=== PATIENT | female | born 1970 | race Caucasian/White ===

== ENCOUNTER → 2018-01-07 | Outpatient (CLI) | payer OTHER ==
--- NOTE | 2018-01-07 07:37 | US ---
EXAMINATION TYPE: US liver DATE OF EXAM: 01/07/2018 COMPARISON: NONE CLINICAL HISTORY: Abnormal liver Function R70.8; on medication for diabetes EXAM MEASUREMENTS: Liver Length: 18.0 cm, normal less than 15.5 cm. Gallbladder Wall: 0.1 cm CBD: 0.4 cm Right Kidney: 11.2 x 5.6 x 4.6 cm Pancreas: wnl Liver: fatty, increased size Gallbladder: wnl Evidence for sonographic Bond's sign: No CBD: wnl Right Kidney: wnl IMPRESSION: 1. Mild fatty infiltration of liver. 2. Hepatomegaly.
== END | disposition home or self-care (01) ==
LOC: RADUSWWP 06:55
PROVIDERS: ATTEND Family Medicine
DX: K76.0 Fatty (change of) liver, not elsewhere classified (principal); R16.0 Hepatomegaly, not elsewhere classified; R74.8 Abnormal levels of other serum enzymes
CPT/HCPCS: 76705

== ENCOUNTER 2020-06-09 14:14 | Emergency (ER) | payer OTHER ==
[2020-06-09] MEDS ORDERED: ASPIRIN 81 MG PO STA (14:23)
[2020-06-09] MEDS ORDERED: SODIUM CHLORIDE 0.9% 1,000 ML IV STA (14:23)
[2020-06-09] MEDS ORDERED: KETOROLAC 15 MG/ML 1 ML VIAL IVP STA (14:24)
[2020-06-09] MEDS ORDERED: ORPHENADRINE 30 MG/ML 2 ML VIAL IVP STA (14:24)
[2020-06-09 14:26] VITALS: TEMP 97.9
--- NOTE | 2020-06-09 14:28 | ED ---
Chest Pain HPI - General Stated Complaint: RU Time Seen by Provider: 06/09/20 14:15 Source: patient, RN notes reviewed - History of Present Illness Initial Comments: Is a 50-year-old female with no prior history of heart or lung disease who states she was working on a tractor try to get a mower deck off 20 minutes prior to arrival when she started having severe sharp right-sided chest pain. She states radiates straight to her back. He states it would get as severe as 10/10 severity is waxing and waning however it does seem he is somewhat worse with deep breathing or movement. Prior to that no fevers chills cough phlegm production or other abnormalities. MD Complaint: chest pain - Related Data Home Medications Medication Instructions Recorded Confirmed Glimepiride [Amaryl] 2 mg PO AC-BRKFST 05/18/20 06/09/20 metFORMIN HCL [Glucophage] 500 mg PO TID 05/18/20 06/09/20 sitaGLIPtin [Januvia] 100 mg PO DAILY 05/18/20 06/09/20 Albuterol Inhaler [Ventolin Hfa 2 puff INHALATION RT-QID PRN 06/09/20 06/09/20 Inhaler] Calcium Phosphate/Melatonin 4 tab PO ONCE PRN 06/09/20 06/09/20 [Paula-Garner Pm Gummy] Fenofibrate Nanocrystallized 145 mg PO DAILY 06/09/20 06/09/20 [Fenofibrate] Previous Rx's Medication Instructions Recorded Ibuprofen 800 mg PO Q6HR PRN #20 tablet 06/09/20 Orphenadrine [Norflex] 100 mg PO Q12H #7 tablet.er 06/09/20 Allergies Allergy/AdvReac Type Severity Reaction Status Date / Time fluticasone furoate AdvReac Chest Pain Verified 06/09/20 14:50 [From Breo Ellipta] vilanterol AdvReac Chest Pain Verified 06/09/20 14:50 [From Breo Ellipta] Review of Systems ROS Statement: Those systems with pertinent positive or pertinent negative responses have been documented in the HPI. ROS Other: All systems not noted in ROS Statement are negative. EKG Findings - EKG Results: EKG: interpreted by ERMNoel, sinus rhythm, normal axis, normal ST/T, no acute changes (Sinus rhythm a 92. Interval 144 QRS 78 QT since QTC 364/450 rightward axis no acute ST-T wave changes) Past Medical History Past Medical History: Diabetes Mellitus, Hyperlipidemia History of Any Multi-Drug Resistant Organisms: None Reported Additional Past Surgical History / Comment(s): Eye surgery 2013 Past Anesthesia/Blood Transfusion Reactions: Previous Problems w/ Anesthesia Additional Past Anesthesia/Blood Transfusion Reaction / Comment(s): pt states that her heart stops Past Psychological History: No Psychological Hx Reported Smoking Status: Former smoker Past Drug Use History: None Reported General Exam - General Exam Comments Initial Comments: This is a well-developed well-nourished awake alert oriented x 3 female General appearance: alert, anxious, in distress Head exam: Present: atraumatic, normocephalic, normal inspection Eye exam: Present: normal appearance, PERRL, EOMI. Absent: scleral icterus, conjunctival injection, periorbital swelling ENT exam: Present: normal exam, mucous membranes moist Neck exam: Present: normal inspection, full ROM, other (Reviewofanybruits). Absent: tenderness, meningismus, lymphadenopathy Respiratory exam: Present: normal lung sounds bilaterally, chest wall tenderness (Tenderness palpation over the right costal sternal costochondral margin with no step-off or crepitation. His does seem to reproduce the pain). Absent: respiratory distress, wheezes, rales, rhonchi, stridor Cardiovascular Exam: Present: regular rate, normal rhythm, normal heart sounds. Absent: systolic murmur, diastolic murmur, rubs, gallop, clicks GI/Abdominal exam: Present: soft, normal bowel sounds. Absent: distended, tenderness, guarding, rebound, rigid Extremities exam: Present: normal inspection, full ROM, normal capillary refill. Absent: tenderness, pedal edema, joint swelling, calf tenderness Back exam: Present: normal inspection Neurological exam: Present: alert, oriented X3, CN II-XII intact Psychiatric exam: Present: normal affect, anxious Skin exam: Present: warm, dry, intact, normal color. Absent: rash Course Vital Signs 06/09/20 06/09/20 14:16 14:32 Temperature 97.9 F Pulse Rate 101 H 88 Pulse Rate [ 90 Community Resource Consultant ] Respiratory 22 20 Rate Blood Pressure 156/82 157/73 O2 Sat by Pulse 98 99 Oximetry Procedures - Smoking Cessation Time Spent Discussing Smoking Cessation w/Patient (Minutes): 3 Patient Acknowledges Need for Cessation: Yes Chest Pain MDM - MDM Did review the imaging and report no acute findings patient pain is much improved the presentation is consistent with costochondritis and chest wall pain and did have a long discussion with patient wearing the findings including we did discuss smoking cessation and so the risks and benefits thereof. Patient will be discharged on appropriate medication. Disposition Clinical Impression: Costochondritis, Chest wall syndrome Disposition: HOME SELF-CARE Condition: Good Instructions (If sedation given, give patient instructions): Costochondritis (ED) Prescriptions: Ibuprofen 800 mg PO Q6HR PRN #20 tablet PRN Reason: Pain Orphenadrine [Norflex] 100 mg PO Q12H #7 tablet.er Is patient prescribed a controlled substance at d/c from ED?: No Referrals: Jim Huynh MD [Primary Care Provider] - 1-2 days
[2020-06-09 14:46] LABS: Basophils % (A) 0 %; Eosinophils # (A) 0.2 k/uL (0-0.7); Eosinophils % (A) 2 %; HCT 44.7 % (34.0-46.0); HGB 14.8 gm/dL (11.4-16.0); Lymphocytes # (A) 2.2 k/uL (1.0-4.8); Lymphocytes % (A) 23 %; MCH 30.3 pg (25.0-35.0); MCV 91.9 fL (80.0-100.0); Mean Platelet Volume 8.2; Monocytes # (A) 0.4 k/uL (0-1.0); Monocytes % (A) 4 %; Neutrophils # (A) 6.4 k/uL (1.3-7.7); Neutrophils % (A) 68 %; Platelet Count 254 k/uL (150-450); RBC 4.87 m/uL (3.80-5.40); RDW 13.3 % (11.5-15.5); WBC 9.4 k/uL (3.8-10.6)
--- NOTE | 2020-06-09 14:55 | XR ---
EXAMINATION TYPE: XR chest 2V DATE OF EXAM: 06/09/2020 COMPARISON: None HISTORY: 50-year-old female with chest pain TECHNIQUE: PA and lateral views FINDINGS: Heart normal size. Aorta and pulmonary vasculature within normal limits. Mild interstitial prominence . No consolidation or pleural effusion. IMPRESSION: Mild interstitial prominence may be chronic or could reflect bronchitis or asthma. Otherwise, no acut e process seen.
[2020-06-09 15:01] LABS: ALT 42 U/L (4-34); AST 29 U/L (14-36); African American GFR (CKD) >90 (>60 ml/min/1.73 sqM); Albumin 4.4 g/dL (3.5-5.0); Alkaline Phosphatase 87 U/L (38-126); Anion Gap 10 mmol/L; Blood Urea Nitrogen 17 mg/dL (7-17); Calcium 9.9 mg/dL (8.4-10.2); Carbon Dioxide 22 mmol/L (22-30); Chloride 106 mmol/L (98-107); Creatine Kinase 61 U/L (30-135); D-Dimer 0.46 mg/L FEU (<0.60); Glucose 276 mg/dL (74-99); INR 0.9 (<1.2); Magnesium 1.8 mg/dL (1.6-2.3); Non-African American GFR(CKD) 90 (>60 ml/min/1.73 sqM); Partial Thromboplastin Time 26.2 sec (22.0-30.0); Potassium 4.3 mmol/L (3.5-5.1); Prothrombin Time 9.6 sec (9.0-12.0); Sodium 138 mmol/L (137-145); Total Bilirubin 0.2 mg/dL (0.2-1.3)
[2020-06-09 16:04] VITALS: BP 150/77; PULSE 81; RESP 18
== END 2020-06-09 16:03 | disposition home or self-care (01) ==
LOC: EC 14:14
DX: M94.0 Chondrocostal junction syndrome [Tietze] (principal); E11.9 Type 2 diabetes mellitus without complications; Z79.84 Long term (current) use of oral hypoglycemic drugs; Z87.891 Personal history of nicotine dependence; Z88.8 Allergy status to other drugs, medicaments and biological substances
CPT/HCPCS: 36415; 85379; 83880; 80053; 82550; 83735; 84484; 85025; 85610; 85730; 71046; 99285; 96374; 96375; 96361 ×2; J2360; J1885; 99406

== ENCOUNTER → 2021-08-14 | Outpatient (CLI) | payer OTHER ==
--- NOTE | 2021-08-16 09:31 | MM ---
Reason for exam: screening (asymptomatic). Baseline mammogram. History: Patient is postmenopausal, has history of other cancer at age 29, and is nulliparous. Physical Findings: Nurse did not find any significant physical abnormalities on exam. MG Screening Mammo w CAD Bilateral CC and MLO view(s) were taken. XCCL view(s) were taken of the left breast. The breast tissue is heterogeneously dense. This may lower the sensitivity of mammography. Two areas of focal asymmetry anteriorly left breast and once located inferiorly right MLO. These may represent superimposition shadow but further evaluation is recommended. ASSESSMENT: Incomplete: need additional imaging evaluation, BI-RAD 0 RECOMMENDATION: Special view mammogram of both breasts. If lesion persists on supplemental views, image directed ultrasound is recommended. [facility] will attempt to contact patient to return for supplemental views and ultrasound if indicated.
== END | disposition home or self-care (01) ==
LOC: RADMAMWWP 14:07
PROVIDERS: ATTEND Obstetrics & Gynecology Obstetrics
DX: Z12.31 Encounter for screening mammogram for malignant neoplasm of breast (principal); Z78.0 Asymptomatic menopausal state
CPT/HCPCS: 77067

== ENCOUNTER → 2021-08-29 | Outpatient (CLI) | payer OTHER ==
--- NOTE | 2021-08-29 10:06 | MM ---
Reason for exam: additional evaluation requested from abnormal screening. Last mammogram was performed less than 1 month ago. History: Patient is postmenopausal, has history of other cancer at age 29, and is nulliparous. Family history of breast cancer in maternal grandmother. Physical Findings: Nurse did not find any significant physical abnormalities on exam. MG Work Up Mamm w CAD BILAT Bilateral spot compression MLO and LM view(s) were taken. Spot compression CC view(s) were taken of the left breast. Prior study comparison: August 14, 2021, bilateral MG screening mammo w CAD. The breast tissue is heterogeneously dense. This may lower the sensitivity of mammography. Right inferior asymmetric density persists on spot MLO but seems less defined on lateral. Left areas of asymmetric density show improvement on spot compression but other asymmetries amis likely due to focal dense tissue. These results were verbally communicated with the patient and result sheet given to the patient on 08/29/21. ASSESSMENT: Incomplete: need additional imaging evaluation, BI-RAD 0 RECOMMENDATION: Ultrasound of the right breast. (inferior half)
--- NOTE | 2021-08-29 10:07 | USB ---
Reason for exam: additional evaluation requested from abnormal screening. History: Patient is postmenopausal, has history of other cancer at age 29, and is nulliparous. Family history of breast cancer in maternal grandmother. US Breast Limited RT Right limited breast ultrasound including focal area of concern, retroareolar and axilla demonstrates mild duct ectasia. No solid or cystic lesion. Scanned 3-9 o'clock. These results were verbally communicated with the patient and result sheet given to the patient on 08/29/21. ASSESSMENT: Probably benign, BI-RAD 3 RECOMMENDATION: Follow-up diagnostic mammogram of both breasts in 6 months.
== END | disposition home or self-care (01) ==
LOC: RADMAMWWP 06:58
PROVIDERS: ATTEND Obstetrics & Gynecology Obstetrics
DX: N60.41 Mammary duct ectasia of right breast (principal); N64.89 Other specified disorders of breast; Z80.3 Family history of malignant neoplasm of breast; Z78.0 Asymptomatic menopausal state
CPT/HCPCS: 77066

== ENCOUNTER → 2022-02-27 | Outpatient (CLI) | payer OTHER ==
--- NOTE | 2022-02-27 16:36 | MM ---
Reason for Exam: Follow-up at short interval from prior study. Last screening mammogram was performed 6 month(s) ago. Patient History: Menarche at age 18. Patient has no children. Postmenopausal. Other cancer, age 29. Maternal grandmother had breast cancer. Risk Values: Eboni 5 year model risk: 1.0%. NCI Lifetime model risk: 9.1%. Film Views: Bilateral CC views were taken. Bilateral MLO views were taken. Prior Study Comparison: 08/14/2021 Bilateral Screening Mammogram, [facility]. 08/29/2021 Bilateral Diagnostic Mammogram, [facility]. 08/29/2021 Right Diagnostic Ultrasound, [facility]. Tissue Density: The breast tissue is heterogeneously dense. This may lower the sensitivity of mammography. Findings: Analyzed By CAD. No persistent suspicious distortion spiculated or lobular masses are evident. Benign spherical calcifications within the left breast. No significant interval change is evident. Overall Assessment: Benign, BI-RAD 2 Management: Screening Mammogram of both breasts in 6 months. A clinical breast exam by your physician is recommended on an annual basis and results should be correlated with mammographic findings. This exam should not preclude additional follow-up of suspicious palpable abnormalities. Results were given to the patient verbally at the time of exam. Electronically signed and approved by: Joe Davis D.O. Radiologis
== END | disposition home or self-care (01) ==
LOC: RADMAMWWP 08:40
PROVIDERS: ATTEND Family Medicine
DX: R92.1 Mammographic calcification found on diagnostic imaging of breast (principal); Z78.0 Asymptomatic menopausal state; Z80.3 Family history of malignant neoplasm of breast
CPT/HCPCS: 77062; 77066

== ENCOUNTER → 2022-04-10 | Outpatient (CLI) | payer OTHER ==
--- NOTE | 2022-04-10 17:30 | P.SLEEP ---
History of Present Illness DATE: 04/10/2022 CONSULTATION/NEW PATIENT EVALUATION HISTORY OF PRESENT ILLNESS/SLEEP-WAKE EVALUATION: 51year old female had been evaluated in the sleep center for possible obstructive sleep apnea hypopnea syndrome and significant excessive daytime sleepiness. SLEEP SCHEDULE: Usually sleep schedule on weekdays 10 PM to 6 AM, during days off 10 PM to 6 AM. FALLING ASLEEP: Patient has problems with the falling asleep, has TV set and bedroom DURING SLEEP: She usually sleeps on the side position away of the snoring and aw akenings from sleep with nocturia 1. Significant amount of movements during the sleep, restless leg symptoms No history of hypnogogical hallucinations, sleep paralysis, or cataplexy. DURING THE DAY/WAKE STATE: In the morning patient wake up tired, falling to sleep during the day. Almo sleepiness scale is 6, but patient falling to sleep very often while sitting and reading or watching TV. Usually she doesn't take naps. PAST MEDICAL HISTORY: Several years ago for symptoms of tiredness and sleepiness patient was on treatment with the Provigil and feels better with medication of the time. Diabetes mellitus, asthma, non-Hodgkin lymphoma 15 years ago. PAST SURGICAL HISTORY: Lymph node removed from neck area for non-Hodgkin lymphoma MEDICATIONS: Metformin, Januvia, albuterol. SOCIAL HISTORY: Positive for smoking for 32 pack years, quit 1 months ago, alcohol consumption none. FAMILY HISTORY: Hypertension, heart problems, hyperlipidemia REVIEW OF SYSTEMS: Snoring, tiredness and sleepiness. No fevers. No double vision. No recent chest pain. No shortness of breath. No abdominal pain. No bleeding episodes. No blood in urine. No seizure episodes. PHYSICAL EXAMINATION: GENERAL: A pleasant patient without any distress. VITAL SIGNS: BP 148/71 , HR 108 , RR 20 , weight 188 pounds, height 5 foot 8 inches, body mass index 28.4 . HEENT: PERRLA, EOMI. Evaluation of oropharynx showed tongue protrudes midline, low position of soft palate Mallampati for. NECK: Supple. No JVD. Thyroid is not palpable. 14 inches in circumference. LUNGS: Clear to percussion and to auscultation. Good air exchange. No wheezing or rhonchi. HEART: S1, S2 regular. No murmurs, gallops or rubs. ABDOMEN: Soft and nontender. Bowel sounds are present. No organomegaly appreciated. EXTREMITIES: No clubbing or cyanosis. FRUIT AND VEGETABLE INSPECTOR: Awake, alert, and oriented x3. Cranial nerves 2 to 7 intact. There is no fasciculation or atrophy noted. No focal deficits observed. ASSESSMENT: 1. Snoring. Extremely low position of soft palate. Episodes of sleepiness. Possible obstructive sleep apnea hypopnea syndrome. 2. Significant amount of movements during the sleep periodic limb movements. 3 restless legs symptoms. 4. History of non-Hodgkin lymphoma treated 15 years ago. 5 asthma. 6. Diabetes mellitus. PLAN: 1. Polysomnography for evaluation of patient's breathing during sleep and to check for possible periodic limb movements with following M SLT if PSG is negative for BASHIR. 2. CPAP/BiPAP titration if sleep study confirms obstructive sleep apnea- hypopnea syndrome. 3. Preferable position during sleep on the side. 4. No driving if patient feels any sleepiness. Patient is aware of civil and criminal liability for unsafe driving. 5. Sleep hygiene with regular sleep time for at least 7.5-8 hours. 6. Watching weight. Sincerely, Jordan Orozco MD, PhD, FAASM. Diplomat of [place] [employer], Sleep Medicine Board by [place] [employer] [place] [employer] Retail Sales Associate Seasonal of [facility] Past Medical History Past Medical History: Diabetes Mellitus, Hyperlipidemia History of Any Multi-Drug Resistant Organisms: None Reported Additional Past Surgical History / Comment(s): Eye surgery 2013 Past Anesthesia/Blood Transfusion Reactions: Previous Problems w/ Anesthesia Additional Past Anesthesia/Blood Transfusion Reaction / Comment(s): pt states that her heart stops Past Psychological History: No Psychological Hx Reported Smoking Status: Former smoker Past Drug Use History: None Reported Medications and Allergies Home Medications Medication Instructions Recorded Confirmed Type Glimepiride [Amaryl] 2 mg PO AC-BRKFST 05/18/20 06/09/20 History metFORMIN HCL [Glucophage] 500 mg PO TID 05/18/20 06/09/20 History sitaGLIPtin [Januvia] 100 mg PO DAILY 05/18/20 06/09/20 History Albuterol Inhaler [Ventolin Hfa 2 puff INHALATION RT-QID PRN 06/09/20 06/09/20 History Inhaler] Calcium Phosphate/Melatonin 4 tab PO ONCE PRN 06/09/20 06/09/20 History [Paula-[place] Pm Gummy] Fenofibrate Nanocrystallized 145 mg PO DAILY 06/09/20 06/09/20 History [Fenofibrate] Ibuprofen 800 mg PO Q6HR PRN #20 tablet 06/09/20 Rx Orphenadrine [Norflex] 100 mg PO Q12H #7 tablet.er 06/09/20 Rx Allergies Allergy/AdvReac Type Severity Reaction Status Date / Time fluticasone furoate AdvReac Chest Pain Verified 08/29/21 07:40 [From Breo Ellipta] vilanterol AdvReac Chest Pain Verified 08/29/21 07:40 [From Breo Ellipta] Sleep Note - Sleep Note Sleep Note: Temperature: Pulse Rate: Respiratory Rate: Blood Pressure: SpO2: Height: Weight: BMI: Neck Circumference:
== END ==
LOC: SLEEP 16:40
PROVIDERS: ATTEND Internal Medicine
DX: R40.0 Somnolence (principal); G47.61 Periodic limb movement disorder; R06.83 Snoring; J45.909 Unspecified asthma, uncomplicated; E11.9 Type 2 diabetes mellitus without complications; Z85.72 Personal history of non-Hodgkin lymphomas; Z79.84 Long term (current) use of oral hypoglycemic drugs; G25.81 Restless legs syndrome; Z79.51 Long term (current) use of inhaled steroids; Z87.891 Personal history of nicotine dependence; Z88.8 Allergy status to other drugs, medicaments and biological substances
CPT/HCPCS: 99211

== ENCOUNTER 2023-07-10 13:40 | Observation (INO) | payer OTHER ==
[2023-07-10] MEDS ORDERED: ASPIRIN 81 MG PO STA (14:44)
--- NOTE | 2023-07-10 15:14 | ED ---
Chest Pain HPI - General Chief Complaint: Chest Pain Stated Complaint: high BP pain in l arm Time Seen by Provider: 07/10/23 14:40 Source: patient, RN notes reviewed Mode of arrival: ambulatory Limitations: no limitations - History of Present Illness Initial Comments: 53-year-old female presents emergency Department with chief complaint of chest pain. Patient states pain is more frequent. She states she has sharp stabbing lightning type pain and radiates to her chest she states that she has now left arm pain, neck pain. She states that symptoms have been getting worse. Patient states that she has discussed with her PCP. Patient has a history of hyperlipidemia and diabetes. She states pain has been more frequent, worsening symptoms. - Related Data Home Medications Medication Instructions Recorded Confirmed Glimepiride [Amaryl] 2 mg PO AC-BRKFST 05/18/20 07/10/23 metFORMIN HCL [Glucophage] 500 mg PO BID 05/18/20 07/10/23 sitaGLIPtin [Januvia] 100 mg PO DAILY 05/18/20 07/10/23 Albuterol Inhaler [Ventolin Hfa 2 puff INHALATION RT-QID PRN 06/09/20 07/10/23 Inhaler] Fenofibrate Nanocrystallized 145 mg PO DAILY 06/09/20 07/10/23 [Fenofibrate] ondansetron HCL [Zofran] 8 mg PO TID PRN 07/10/23 07/10/23 Allergies Allergy/AdvReac Type Severity Reaction Status Date / Time fluticasone furoate AdvReac Chest Pain Verified 07/10/23 16:21 [From Breo Ellipta] vilanterol AdvReac Chest Pain Verified 07/10/23 16:21 [From Breo Ellipta] Review of Systems ROS Statement: Those systems with pertinent positive or pertinent negative responses have been documented in the HPI. ROS Other: All systems not noted in ROS Statement are negative. EKG Findings - EKG Comments: EKG Findings:: EKG performed at 14:15 sinus rhythm with a rate of 92 FL 128 QRS 79 QT/QTC 357/407 inverted T wave, Q-wave in lead 3 - EKG Results: EKG: interpreted by SADIED Past Medical History Past Medical History: Diabetes Mellitus, Hyperlipidemia History of Any Multi-Drug Resistant Organisms: None Reported Additional Past Surgical History / Comment(s): Eye surgery 2014 Past Anesthesia/Blood Transfusion Reactions: Previous Problems w/ Anesthesia Additional Past Anesthesia/Blood Transfusion Reaction / Comment(s): pt states that her heart stops Past Psychological History: No Psychological Hx Reported Smoking Status: Former smoker Past Alcohol Use History: None Reported Past Drug Use History: None Reported General Exam Limitations: no limitations General appearance: alert, in no apparent distress Head exam: Present: atraumatic, normocephalic, normal inspection Eye exam: Present: normal appearance, PERRL, EOMI. Absent: scleral icterus, conjunctival injection, periorbital swelling ENT exam: Present: normal exam, normal oropharynx, mucous membranes moist Neck exam: Present: normal inspection. Absent: tenderness, meningismus, lymphadenopathy Respiratory exam: Present: normal lung sounds bilaterally. Absent: respiratory distress, wheezes, rales, rhonchi, stridor Cardiovascular Exam: Present: regular rate, normal rhythm, normal heart sounds. Absent: systolic murmur, diastolic murmur, rubs, gallop, clicks GI/Abdominal exam: Present: soft, normal bowel sounds. Absent: distended, tenderness, guarding, rebound, rigid Extremities exam: Present: normal inspection, full ROM. Absent: tenderness Back exam: Present: full ROM. Absent: tenderness Course Vital Signs 07/10/23 07/10/23 07/10/23 13:53 15:01 16:00 Temperature 97.0 F L Pulse Rate 100 95 92 Respiratory 18 20 20 Rate Blood Pressure 132/69 117/60 127/61 O2 Sat by Pulse 96 95 98 Oximetry Chest Pain MDM - MDM Was pt. sent in by a medical professional or institution (, PA, TALENT ACQUISITION ADMINISTRATOR, urgent care, hospital, or fci...) When possible be specific @ -[No] Did you speak to anyone other than the patient for history (EMS, parent, family, police, friend...)? What history was obtained from this source @ -[No] Did you review nursing and triage notes (agree or disagree)? Why? @ -[I reviewed and agree with nursing and triage notes] Were old charts reviewed (outside hosp., previous admission, EMS record, old EKG, old radiological studies, urgent care reports/EKG's, fci records)? Report findings @ -[No old charts were reviewed] Differential Diagnosis (chest pain, altered mental status, abdominal pain women, abdominal pain men, vaginal bleeding, weakness, fever, dyspnea, syncope, headache, dizziness, GI bleed, back pain, seizure, CVA, palpatations, mental health, musculoskeletal)? @ -[nDifferential Chest Pain: Stable Angina, Unstable Angina, STEMI, NSTEMI Aortic Dissection, Pneumothorax, Musculoskeletal, Esophageal Spasm GERD, Cholecystitis, Pancreatitis, Zoster, this is not meant to be an all-inclusive list. ble] EKG interpreted by me (3pts min.). @ -[As above] X-rays interpreted by me (1pt min.). @ -[Chest x-ray shows no acute carpal or process.] CT interpreted by me (1pt min.). @ -[None done] U/S interpreted by me (1pt. min.). @ -[None done] What testing was considered but not performed or refused? (CT, X-rays, U/S, labs)? Why? @ -[None] What meds were considered but not given or refused? Why? @ -[None] Did you discuss the management of the patient with other professionals (sosa garcia i.e. , PA, TALENT ACQUISITION ADMINISTRATOR, lab, RT, psych nurse, mental health social worker, civil engineering project designer, teacher, public service officer, caser up)? Give summary @ -[PCP for admission for cardiac rule out] Was smoking cessation discussed for >3mins.? @ -[No] Was critical care preformed (if so, how long)? @ -[No] Were there social determinants of health that impacted care today? How? (Homelessness, low income, unemployed, alcoholism, drug addiction, transportation, low edu. Level, literacy, decrease access to med. care, shelter, rehab)? @ -[No] Was there de-escalation of care discussed even if they declined (Discuss DNR or withdrawal of care, Hospice)? DNR status @ -[No] What co-morbidities impacted this encounter? (DM, HTN, Smoking, COPD, CAD, Cancer, CVA, ARF, Chemo, Hep., AIDS, mental health diagnosis, sleep apnea, morbid obesity)? @ -[Diabetes hyperlipidemia] Was patient admitted / discharged? Hospital course, mention meds given and route, prescriptions, significant lab abnormalities, going to OR and other pertinent info. @ -[Admitted patient's chest pain worsening progressive symptoms. Patient symptoms consistent with unstable angina. Patient initially troponin is negative negative d-dimer. Patient has hyperlipidemia, diabetes and history of Hodgkin's lymphoma. Patient will be admitted for cardiology evaluation] Undiagnosed new problem with uncertain prognosis? @ -[No] Drug Therapy requiring intensive monitoring for toxicity (Heparin, Nitro, Insulin, Cardizem)? @ -[No] Were any procedures done? @ -[No] Diagnosis/symptom? @ -[Chest pain] Acute, or Chronic, or Acute on Chronic? @ -[Acute] Uncomplicated (without systemic symptoms) or Complicated (systemic symptoms)? @ -[complicated Side effects of treatment? @ -[No] Exacerbation, Progression, or Severe Exacerbation? @ -[No] Poses a threat to life or bodily function? How? (Chest pain, [place], DC, pneumonia, PE, COPD, DKA, ARF, appy, cholecystitis, CVA, Diverticulitis, Homicidal, Suicidal, threat to staff... and all critical care pts) @ -[yes has ACS Disposition Clinical Impression: Chest pain Disposition: ADMITTED IP TO THIS HOSP Condition: Fair Referrals: Joanna Davey PAC [REFERRING] - 1-2 days Time of Disposition: 16:50
[2023-07-10 15:21] LABS: Basophils % (A) 1 %; Eosinophils # (A) 0.3 k/uL (0-0.7); Eosinophils % (A) 4 %; HCT 41.2 % (34.0-46.0); HGB 14.4 gm/dL (11.4-16.0); Lymphocytes # (A) 1.7 k/uL (1.0-4.8); Lymphocytes % (A) 24 %; MCH 31.7 pg (25.0-35.0); MCHC 34.9 g/dL (31.0-37.0); MCV 91.1 fL (80.0-100.0); Mean Platelet Volume 8.1; Monocytes # (A) 0.4 k/uL (0-1.0); Monocytes % (A) 6 %; Neutrophils # (A) 4.6 k/uL (1.3-7.7); Neutrophils % (A) 64 %; Platelet Count 186 k/uL (150-450); RBC 4.52 m/uL (3.80-5.40); WBC 7.1 k/uL (3.8-10.6)
--- NOTE | 2023-07-10 15:31 | XR ---
EXAMINATION TYPE: XR chest 2V DATE OF EXAM: 07/10/2023 COMPARISON: 06/09/2020 HISTORY: 53-year-old female with chest pain TECHNIQUE: PA and lateral views FINDINGS: The cardiomediastinal silhouette, aorta, and pulmonary vasculature are within normal limits. Lungs an d pleural spaces are clear. IMPRESSION: No acute cardiopulmonary process.
[2023-07-10 15:39] LABS: ALT 76 U/L (4-34); AST 56 U/L (14-36); African American GFR (CKD) >90 (>60 ml/min/1.73 sqM); Albumin 4.1 g/dL (3.5-5.0); Alkaline Phosphatase 104 U/L (38-126); Anion Gap 11 mmol/L; Blood Urea Nitrogen 16 mg/dL (7-17); Calcium 9.3 mg/dL (8.4-10.2); Carbon Dioxide 23 mmol/L (22-30); Chloride 103 mmol/L (98-107); Glucose 280 mg/dL (74-99); Magnesium 1.8 mg/dL (1.6-2.3); Non-African American GFR(CKD) >90 (>60 ml/min/1.73 sqM); Potassium 4.3 mmol/L (3.5-5.1); Sodium 137 mmol/L (137-145); Total Bilirubin 0.3 mg/dL (0.2-1.3)
[2023-07-10 15:40] LABS: INR 0.9 (<1.2); Partial Thromboplastin Time 23.8 sec (22.0-30.0); Prothrombin Time 9.7 sec (9.0-12.0)
[2023-07-10 15:47] LABS: NT-Pro-B-Type Natriuretic Pept 31 pg/mL
[2023-07-10] MEDS ORDERED: NITROGLYCERIN SL TABS 0.4 MG TAB SUBLINGUAL PRN (16:48)
[2023-07-11] MEDS ORDERED: AMINOPHYLLINE 500 MG/20 ML VIAL IV PRN (07:51)
[2023-07-11] MEDS ORDERED: CAFFEINE CITRATE 60 MG/3 ML VIAL IV PRN (07:51)
[2023-07-11] MEDS ORDERED: REGADENOSON 0.4 MG/5 ML SYRINGE IV PRN (07:51)
[2023-07-11] MEDS ORDERED: DEXTROSE 50% SYRINGE 50 ML IVP PRN ×2 (08:09)
[2023-07-11 08:15] VITALS: BP 124/74; PULSE 80; RESP 16; TEMP 97.8
[2023-07-11] MEDS ORDERED: ASPIRIN 81 MG PO SCH (09:00)
[2023-07-11] MEDS ORDERED: FENOFIBRATE 160 MG TAB PO SCH (09:00)
[2023-07-11] MEDS ORDERED: ASPIRIN 325 MG TAB PO SCH (09:00)
--- NOTE | 2023-07-11 09:01 | P.CRDCN ---
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 Patient had one appointment in the office in [address] Dickson at that time recommended stress testing which did not occur. Patient does not recall having the appointment. Patient had a high blood pressure reading at home with a systolic of 180 and contacted her practitioner was sent into the emergency center for further evaluation. Patient does relate that she has had pains in the mid sternal area to go through to her back also up into her right neck and the head area. Feels like a lightning pulled and his. States she has had these pains for more than a year but they are occurring more frequently now. She states she has a high stress job and it seems to be worse with stress and at the time she feels very tense inside and can't get out deep breath. It usually goes away when she lays down in bed. She also has racing and pounding in her chest. Last week she started having left arm numbness and pain that seemed to start at the base of the neck on the lateral side and go to the elbow. Patient quit smoking 2 months ago. She denies any cough or sputum production. Although blood pressure readings were high at home, all her pressure readings here have been normal. EKG sinus rhythm with no acute ST changes Chest x-ray: No acute process Troponin negative 3, blood sugar 280, AST 56, ALT 76, magnesium 1.8. Home cardiac medications: None Review Of Systems: At the time of my evaluation: Constitutional: No fever, no chills. No weakness, fatigue or lethargy. EENT: No headache. No dizziness. Lungs: No shortness of breath, cough, no sputum production. No wheezing. Cardiovascular: No chest pain, no lower extremity edema. No palpitations. No paroxysmal nocturnal dyspnea. No orthopnea. No lightheadedness or dizziness. No syncopal episodes. Abdominal: No abdominal pain. No nausea, vomiting. No diarrhea. Musculoskeletal: No muscle weakness, no frequent falls. Integumentary: No wounds. No rash. No unusual bruising. Neurologic: No aphasia. No facial droop. No change in mentation. Physical examination: Gen: This is a 53-year-old female. She is resting in bed appears to be comfortable and in no acute distress. VS: reviewed HEENT: Head is atraumatic, normocephalic. Pupils equal, round. Sclerae is anicteric. NECK: Supple. No JVD. . LUNGS: Clear to auscultation. No wheezes or rhonchi. No intercostal retractions. HEART: Regular rate and rhythm. No murmur. No tenderness to chest wall ABDOMEN: Soft No tenderness. EXTREMITIES: No pedal edema. No calf tenderness. NEUROLOGICAL: Patient is awake, alert and oriented x3. Assessment: Atypical chest pain, acute coronary syndrome ruled out Diabetes mellitus type 2 Hypertension Hyperlipidemia Plan: Patient will be scheduled for Lexiscan stress test today Obtain 2-D echocardiogram and Doppler study to assess cardiac structure and function If stress test and echocardiogram unremarkable, patient is cleared for discharge and may follow up with Dr. Dickson in the office. Thank you kindly for this consultation. Nurse practitioner note has been reviewed, I agree with documented findings and plan of care. Patient was seen and examined. Past Medical History Past Medical History: Diabetes Mellitus, Hyperlipidemia History of Any Multi-Drug Resistant Organisms: None Reported Additional Past Surgical History / Comment(s): Eye surgery 2013 Past Anesthesia/Blood Transfusion Reactions: Previous Problems w/ Anesthesia Additional Past Anesthesia/Blood Transfusion Reaction / Comment(s): pt states that her heart stops Past Psychological History: No Psychological Hx Reported Smoking Status: Former smoker Past Alcohol Use History: None Reported Past Drug Use History: None Reported Medications and Allergies Home Medications Medication Instructions Recorded Confirmed Type Glimepiride [Amaryl] 2 mg PO AC-BRKFST 05/18/20 07/10/23 History metFORMIN HCL [Glucophage] 500 mg PO BID 05/18/20 07/10/23 History sitaGLIPtin [Januvia] 100 mg PO DAILY 05/18/20 07/10/23 History Albuterol Inhaler [Ventolin Hfa 2 puff INHALATION RT-QID PRN 06/09/20 07/10/23 History Inhaler] Fenofibrate Nanocrystallized 145 mg PO DAILY 06/09/20 07/10/23 History [Fenofibrate] ondansetron HCL [Zofran] 8 mg PO TID PRN 07/10/23 07/10/23 History Allergies Allergy/AdvReac Type Severity Reaction Status Date / Time fluticasone furoate AdvReac Chest Pain Verified 07/10/23 16:21 [From Breo Ellipta] vilanterol AdvReac Chest Pain Verified 07/10/23 16:21 [From Breo Ellipta] Physical Exam Vitals: Vital Signs Temp Pulse Pulse Resp BP BP Pulse Ox 07/11/23 02:00 98.4 F 67 15 119/62 97 07/10/23 18:22 65 16 135/68 98 07/10/23 18:00 100 20 152/92 99 07/10/23 17:00 60 16 120/60 98 07/10/23 16:00 92 20 127/61 98 07/10/23 15:01 95 20 117/60 95 07/10/23 13:53 97.0 F L 100 18 132/69 96 Intake and Output 07/10/23 07/11/23 07/11/23 22:59 06:59 14:59 Other: # Voids 1 2 Weight 86.092 kg Results 07/10/23 14:44 07/10/23 14:44 Cardiac Enzymes 07/10/23 07/10/23 07/10/23 Range/Units 14:44 14:44 20:32 AST 56 H (14-36) U/L Troponin I <0.012 <0.012 (0.000-0.034) ng/mL 07/11/23 Range/Units 05:04 AST (14-36) U/L Troponin I <0.012 (0.000-0.034) ng/mL Coagulation 07/10/23 Range/Units 14:44 PT 9.7 (9.0-12.0) sec APTT 23.8 (22.0-30.0) sec CBC 07/10/23 Range/Units 14:44 WBC 7.1 (3.8-10.6) k/uL RBC 4.52 (3.80-5.40) m/uL Hgb 14.4 (11.4-16.0) gm/dL Hct 41.2 (34.0-46.0) % Plt Count 186 (150-450) k/uL Comprehensive Metabolic Panel 07/10/23 Range/Units 14:44 Sodium 137 (137-145) mmol/L Potassium 4.3 (3.5-5.1) mmol/L Chloride 103 (98-107) mmol/L Carbon Dioxide 23 (22-30) mmol/L BUN 16 (7-17) mg/dL Creatinine 0.72 (0.52-1.04) mg/dL Glucose 280 H (74-99) mg/dL Calcium 9.3 (8.4-10.2) mg/dL AST 56 H (14-36) U/L ALT 76 H (4-34) U/L Alkaline Phosphatase 104 (38-126) U/L Total Protein 7.0 (6.3-8.2) g/dL Albumin 4.1 (3.5-5.0) g/dL Current Medications Generic Name Dose Route Start Last Admin Trade Name Freq PRN Reason Stop Dose Admin Aspirin 325 mg 07/11/23 09:00 Aspirin 325 Mg Tab PO DAILY MARY JANE Nitroglycerin 0.4 mg 07/10/23 16:48 Nitroglycerin Sl Tabs 0.4 Mg Tab SUBLINGUAL Q5M PRN Chest Pain Intake and Output 07/10/23 07/11/23 07/11/23 22:59 06:59 14:59 Other: # Voids 1 2 Weight 86.092 kg 07/10/23 14:44 07/10/23 14:44
[2023-07-11 09:03] LABS: Chol/HDL Ratio 6.74 Ratio; LDL Cholesterol,Calculated 102.9 mg/dL (0.0-131.0)
--- NOTE | 2023-07-11 10:46 | CA ---
Exercise Stress Test Report Name: Boby Kidd Exam Date: 07/11/2023 09:57 Exam Location: [place] Stress Ht (in): 68 Wt (lb): 189 BSA: 2.00 Ordering Phys: Roxie Lofton Referring Phys: RITIKA, Technologist: Reji Curtis Age: 53 Gender: F : 1970 Procedure CPT: Indications: Reflex order-Stress test ICD-10 Codes: Patient History: CHEST PAIN, RU, PALPITATIONS, NUMBNESS IN FACE/NECK, DIABETIC, ELEVATED CHOLESTEROL LEVELS, ASTHMA Medications: Meds past 24 hrs: Pretest Chest Pain: STRESS TEST Persantine Protocol Exercise Duration (min:sec): 02:[address] Depressions (mm): Angina Score: Barroso Score: Resting HR (bpm): 79 Peak HR (bpm): 98 Resting BP (mmHg): 132 / 65 Peak BP (mmHg): 136 / 60 MPHR: 168 Target HR: 143 % MPHR: 58 METS: 1.0 Total Dose: Peak Dose: Atropine: Double Product: 57987 BP Response: Stress Termination: INFUSION COMPLETE Stress Symptoms: NO SYMPTOMS Stress Summary: ECG ANALYSIS Resting ECG: Stress ECG: CONCLUSIONS Baseline EKG revealed normal sinus rhythm without significant ST-T changes. With Lexiscan administration as per protocol, the heart rate went up from 79-97 bpm and the blood pressure changed from 132/65-127/62. One isolated PVC was noted. Patient was asymptomatic for angina. By EKG criteria this is a unremarkable Lexiscan stress test. The nuclear scan results which are more pertinent will be reported with radiologist Dr. Margot Bustos MD (Electronically Signed) Final Date: 11 July 2023 10:45
--- NOTE | 2023-07-11 11:24 | NM ---
EXAMINATION TYPE: NM stress lexiscan cardiolite DATE OF EXAM: 07/11/2023 COMPARISON: NONE CLINICAL INDICATION: Female, 53 years old with history of cp; TECHNIQUE: After the intravenous administration of 10.4 mCi Tc 99m Sestamibi - Cardiolite resting SP ECT images acquired 45 minutes post injection. The patient received 0.4mg Lexiscan, 26.1 mCi Tc 99m Sestamibi - Stress images obtained [address] injection FINDINGS: Review of stress and rest SPECT images demonstrates no distinct perfusion abnormality. Gated analysi s shows normal wall motion with an estimated left ventricular ejection fraction of 64 %. IMPRESSION: No scintigraphic evidence for reversible ischemia.
[2023-07-11 11:34] LABS: Glucose,Whole Blood 353 mg/dL (70-110)
[2023-07-11] MEDS ORDERED: INSULIN ASPART (NovoLOG) 100 UNIT/ML VIAL SQ ONE (11:45)
[2023-07-11] MEDS ORDERED: INSULIN ASPART (NovoLOG) 100 UNIT/ML VIAL SQ SCH (12:30)
--- NOTE | 2023-07-11 13:25 | P.HPIM ---
History of Present Illness H&P Date: 07/11/23 Chief Complaint: Chest pain History and Physical and Discharge Summary This is a 53-year-old female with past medical history significant for diabetes mellitus type 2, obesity, hyperlipidemia, former nicotine dependence-recently quit, Hodgkins disease with chemo and radiation, and multiple other medical issues presented to the ER with complaints of high blood pressure readings , systolic blood pressure 150s to 190s, both at [facility] and at home ,notified PCP and instructed to proceed to the ER. Patient also reports midsternal chest pain radiating up neck-varies between rightside and bilateral, thru to back. Reports feels like a "lightning jolt". Last week, also endured radiation down her left arm. States significant stress, high stress job with these sensations occurring for a year and a half. EKG reported sinus rhythm, troponins negative 3, chest x-ray reports nonacute. Lipid panel pending. Renal function stable. Electrolytes within normal limits. Blood pressures controlled, systolic blood pressures ranging from 1 teens to 150s. Maintaining O2 sats in the high 90s on room air. Glucose on admission 280. Currently denies chest pain, palpitations or shortness of breath. Denies lightheadedness dizziness or focal deficits. Denies nausea vomiting or diarrhea. Denies abdominal pain. Currently denies back pain. Evaluated by cardiology and scheduled for stress test. Past Medical History Past Medical History: Diabetes Mellitus, Hyperlipidemia History of Any Multi-Drug Resistant Organisms: None Reported Additional Past Surgical History / Comment(s): Eye surgery 2013 Past Anesthesia/Blood Transfusion Reactions: Previous Problems w/ Anesthesia Additional Past Anesthesia/Blood Transfusion Reaction / Comment(s): pt states that her heart stops Past Psychological History: No Psychological Hx Reported Smoking Status: Former smoker Past Alcohol Use History: None Reported Past Drug Use History: None Reported Medications and Allergies Home Medications Medication Instructions Recorded Confirmed Type Glimepiride [Amaryl] 2 mg PO AC-BRKFST 05/18/20 07/10/23 History metFORMIN HCL [Glucophage] 500 mg PO BID 05/18/20 07/10/23 History sitaGLIPtin [Januvia] 100 mg PO DAILY 05/18/20 07/10/23 History Albuterol Inhaler [Ventolin Hfa 2 puff INHALATION RT-QID PRN 06/09/20 07/10/23 History Inhaler] Fenofibrate Nanocrystallized 145 mg PO DAILY 06/09/20 07/10/23 History [Fenofibrate] ondansetron HCL [Zofran] 8 mg PO TID PRN 07/10/23 07/10/23 History Allergies Allergy/AdvReac Type Severity Reaction Status Date / Time fluticasone furoate AdvReac Chest Pain Verified 07/10/23 16:21 [From Breo Ellipta] vilanterol AdvReac Chest Pain Verified 07/10/23 16:21 [From Breo Ellipta] Physical Exam Vitals: Vital Signs Temp Pulse Pulse Pulse Resp BP BP 07/11/23 07:00 97.8 F 80 16 124/74 07/11/23 02:00 98.4 F 67 15 119/62 07/10/23 18:22 65 16 135/68 07/10/23 18:00 100 20 152/92 07/10/23 17:00 60 16 120/60 07/10/23 16:00 92 20 127/61 07/10/23 15:01 95 20 117/60 07/10/23 13:53 97.0 F L 100 18 132/69 Pulse Ox 07/11/23 07:00 95 07/11/23 02:00 97 07/10/23 18:22 98 07/10/23 18:00 99 07/10/23 17:00 98 07/10/23 16:00 98 07/10/23 15:01 95 07/10/23 13:53 96 Intake and Output 07/10/23 07/11/23 07/11/23 22:59 06:59 14:59 Other: # Voids 1 2 Weight 86.092 kg PHYSICAL EXAM: VITAL SIGNS: [As above] GENERAL: Sitting up in bed, no acute distress HEENT: Normocephalic, Conjunctivae normal. eyes normal. NECK: Supple, No JVD. CARDIOVASCULAR: S1, S2 regular.. No murmur RESPIRATION: Unlabored, Equal air entry, CTA. ABDOMEN: Soft, nontender . No guarding. no masses palpable.Bowel sounds heard. LEGS: No edema. no swelling PSYCHIATRY: Alert and oriented X3, mood and affect normal. NERVOUS SYSTEM: Cranial N 2-12 grossly normal.No focal deficits. Strength and sensation grossly intact.. Skin: Warm and dry ,no rash Results CBC & Chem 7: 07/10/23 14:44 07/10/23 14:44 Labs: Abnormal Lab Results - Last 24 Hours (Table) 07/10/23 07/11/23 Range/Units 14:44 05:04 Glucose 280 H (74-99) mg/dL AST 56 H (14-36) U/L ALT 76 H (4-34) U/L Triglycerides 350.00 H (0.00-149.00) mg/dL Cholesterol 203.00 H (0.00-200.00) mg/dL VLDL Cholesterol, Calc 70.00 H (5.00-40.00) mg/dL HDL Cholesterol 30.10 L (40.00-60.00) mg/dL Thrombosis Risk Factor Assmnt - Choose All That Apply Any of the Below Risk Factors Present?: Yes Each Factor Represents 1 point: Age 41-60 years, Obesity (BMI >25) Other Risk Factors: No Other congenital or acquired thrombophilia - If yes, enter type in comment: No Thrombosis Risk Factor Assessment Total Risk Factor Score: 2 Thrombosis Risk Factor Assessment Level: Low Risk Assessment and Plan Assessment: Chest pain, atypical, acute coronary syndrome ruled out, cardiology following Diabetes mellitus type 2, hyperglycemic on admission, hemoglobin A1c pending Hypertension Hyperlipidemia Plan: Continue on current medication regime ,monitoring and symptomatic treatment. Echo and Lexiscan stress test scheduled. Patient will be discharged home today in a stable condition with guarded prognosis pending stress test, final DC recommendations and clearance prior cardiology. Repeat Blood sugar pending-patient is declining NovoLog insulin/sliding scale. Discharge Medication List Glimepiride [Amaryl] 2 mg PO AC-BRKFST 05/18/20 [History] metFORMIN HCL [Glucophage] 500 mg PO BID 05/18/20 [History] sitaGLIPtin [Januvia] 100 mg PO DAILY 05/18/20 [History] Albuterol Inhaler [Ventolin Hfa Inhaler] 2 puff INHALATION RT-QID PRN 06/09/20 [History] Fenofibrate Nanocrystallized [Fenofibrate] 145 mg PO DAILY 06/09/20 [History] ondansetron HCL [Zofran] 8 mg PO TID PRN 07/10/23 [History] The impression and plan of care has been dictated as directed. Dr.: I performed a history and examination of this patient, discussed the same with the dictator. I agree with the dictator's note ,documented as a scribe. Any additional findings or plans will be noted.
--- NOTE | 2023-07-12 10:54 | CA ---
Transthoracic Echo Report Name: Boby Kidd Age: 53 Gender: F : 1970 Exam Date: 07/11/2023 10:37 Exam Location: [place] Echo Ht (in): 68 Wt (lb): 188 Ordering Physician: Ramiro Mckenna Attending/Referring Phys: [id number], Clarisa Log Tumbler Karey Nelson RDCS Procedure CPT: Indications: Chest Pain Cardiac Hx: Technical Quality: Fair Contrast 1: Total Dose (mL): Contrast 2: Total Dose (mL): MEASUREMENTS (Male / Female) Normal Values 2D ECHO LV Diastolic Diameter PLAX 2.9 cm 4.2 - 5.9 / 3.9 - 5.3 cm LV Systolic Diameter PLAX 2.4 cm IVS Diastolic Thickness 1.3 cm 0.6 - 1.0 / 0.6 - 0.9 cm LVPW Diastolic Thickness 1.4 cm 0.6 - 1.0 / 0.6 - 0.9 cm LV Relative Wall Thickness 0.9 RV Internal Dim ED PLAX 2.8 cm M-MODE Aortic Root Diameter MM 3.2 cm LA Systolic Diameter MM 3.5 cm LA Ao Ratio MM 1.1 AV Cusp Separation MM 1.8 cm DOPPLER AV Peak Velocity 224.1 cm/s AV Peak Gradient 20.1 mmHg AV Mean Velocity 162.7 cm/s AV Mean Gradient 11.7 mmHg AV Velocity Time Integral 44.3 cm AI Peak Velocity 392.5 cm/s AI Peak Gradient 61.6 mmHg AI Pressure Half Time 372.7 ms LVOT Peak Velocity 95.3 cm/s LVOT Peak Gradient 3.6 mmHg LVOT Velocity Time Integral 21.1 cm Mitral E Point Velocity 100.2 cm/s Mitral A Point Velocity 104.0 cm/s Mitral E to A Ratio 1.0 MV Deceleration Time 189.3 ms MV E' Velocity 6.3 cm/s Mitral E to MV E' Ratio 15.9 TR Peak Velocity 225.0 cm/s TR Peak Gradient 20.2 mmHg Right Ventricular Systolic Press 30.2 mmHg FINDINGS Left Ventricle Moderately increased left ventricular wall thickness. Left ventricular cavity size normal. Normal left ventricular systolic function with no obvious regional wall motion abnormalities. Left ventricular ejection fraction is estimated at 55-60 %. Right Ventricle Normal right ventricular size and function. Right ventricular systolic pressure within normal limits. Right Atrium Normal right atrial size. Left Atrium Normal left atrial size. Mitral Valve Structurally normal mitral valve. Mitral valve thickened. Mild mitral annular calcification. Mild mitral regurgitation. Aortic Valve Trileaflet aortic valve. Mild aortic stenosis with a peak gradient of 20 mmHg and a mean gradient of 12 mmHg. Mild aortic regurgitation. Tricuspid Valve Structurally normal tricuspid valve. Mild tricuspid regurgitation. Pulmonic Valve Trace pulmonic regurgitation. Pericardium No pericardial effusion. Aorta Normal size aortic root and proximal ascending aorta. CONCLUSIONS Normal LV systolic function Poorly visualized aortic valve. Mild aortic stenosis by gradient. Mild aortic insufficiency Previewed by: Dr. Cristian Dickson MD (Electronically Signed) Final Date: 12 July 2023 10:54
== END 2023-07-11 13:12 | disposition home or self-care (01) ==
LOC: EC 13:40 → 6NMEDSUR 17:58
PROVIDERS: ADMIT Family Medicine; ATTEND Family Medicine
DX: R07.89 Other chest pain (principal); I10 Essential (primary) hypertension; E78.5 Hyperlipidemia, unspecified; M79.602 Pain in left arm; M54.2 Cervicalgia; E11.65 Type 2 diabetes mellitus with hyperglycemia; F43.9 Reaction to severe stress, unspecified; R20.0 Anesthesia of skin; E66.9 Obesity, unspecified; Z68.28 Body mass index [BMI] 28.0-28.9, adult; Z79.84 Long term (current) use of oral hypoglycemic drugs; Z79.899 Other long term (current) drug therapy; Z88.8 Allergy status to other drugs, medicaments and biological substances; Z87.891 Personal history of nicotine dependence; Z85.71 Personal history of Hodgkin lymphoma; Z92.3 Personal history of irradiation; Z92.21 Personal history of antineoplastic chemotherapy; Z98.890 Other specified postprocedural states
CPT/HCPCS: 99285; 36415; 93005; 93017; 93306; 85379; 83880; 80061; 80053; 83735; 84484 ×2; 85025; 85610; 85730; 71046; 78452; G0378 ×2; A9500; J2785

== ENCOUNTER → 2023-08-09 | Outpatient (CLI) | payer OTHER | END | disposition home or self-care (01) | LOC: LABWHC1 08:32 | PROVIDERS: ATTEND Family Medicine | DX: E11.65 Type 2 diabetes mellitus with hyperglycemia (principal) | CPT/HCPCS: 36415; 83525 ==

== ENCOUNTER → 2023-10-14 | Outpatient (CLI) | payer OTHER ==
[2023-10-14 15:34] LABS: Testosterone <10.00 ng/dL (7.00-45.62)
[2023-10-14 15:47] LABS: Estradiol <20.0 pg/mL
[2023-10-14 17:17] LABS: Follicle Stimulating Hormone 54.9 mIU/mL; Luteinizing Hormone 35.2 mIU/mL
== END | disposition home or self-care (01) ==
LOC: LABWHC1 09:16
PROVIDERS: ATTEND Family Medicine
DX: Z79.890 Hormone replacement therapy (principal)
CPT/HCPCS: 36415; 82670; 83001; 83002; 84144; 84403

== ENCOUNTER → 2024-06-18 | Outpatient (CLI) | payer OTHER ==
--- NOTE | 2024-06-18 13:51 | CTL ---
EXAMINATION TYPE: CT Low Dose Lung DATE OF EXAM ORDERED: 06/18/2024 HISTORY: Personal history of nicotine use, quit 2021, 31 pack-year history. Lung cancer screening CT DLP: 90.[address] CTDI: 2.3 mGy Automated exposure control for dose reduction was used. SCREENING VISIT: First screening visit COMPARISON: Chest radiograph 07/10/2023 TECHNIQUE: Low dose computed tomography scan was performed through the chest at 1 mm thick sections a nd reconstructed images in multiple planes at 1 mm and [address] DIAGNOSTIC QUALITY: Satisfactory FINDINGS: Nodules: Peripheral left lower lobe calcified 2.7 mm nodule (series 4, image 182). Anterior right middle lobe pleural-based 5.7 mm pulmonary nodule (series 4, image 203). Right lower lobe peripheral 3.4 mm pulmonary nodule (series 4, image 167). A few punctate intrafissural lymph nodes along the left major fissure. LUNGS: COPD: Severity: Mild Fibrosis: Severity: None Lymph nodes: None Other findings: Medial bilateral upper lobe bronchiectasis. RIGHT PLEURAL SPACE: Effusion: None Calcification: None Thickening: None Pneumothorax: None LEFT PLEURAL SPACE: Effusion: None Calcification: None Thickening: None Pneumothorax: None HEART: Heart Size: Normal size, moderate aortic valvular calcifications Coronary Calcification: Moderate Pericardial Effusion: Tiny anteriorly OTHER FINDINGS: Upper abdomen: The liver is diffusely hypoattenuating. Bony thorax: None Supraclavicular region: None Other: None IMPRESSION: 1. Few scattered pulmonary nodules measuring up to 5.7 mm. 2. Mild COPD changes. 3. Hepatic steatosis. CT LUNG RAD AND CT CHEST RECOMMENDATION: Lung-Rad 2 Benign Appearance or Behavior: Continue annual sc reening with LDCT in 12 months. S Modifier (other clinically significant findings): None [facility] 06/18/2024 1:43 PM
--- NOTE | 2024-06-20 17:10 | MM ---
Reason for Exam: Screening (asymptomatic). Last mammogram was performed 2 year(s) and 4 month(s) ago. Patient History: Menarche at age 18. Patient has no children. Postmenopausal. Other cancer, age 29. Previous chest radiation therapy at age 29. Previous chemotherapy at age 29. Maternal grandmother had breast cancer. Risk Values: Eboni 5 year model risk: 1.1%. NCI Lifetime model risk: 8.6%. Prior Study Comparison: 08/14/2021 Bilateral Screening Mammogram, [facility]. 08/29/2021 Bilateral Diagnostic Mammogram, [facility]. 02/27/2022 Bilateral MG 3D diag mammo w/cad MARY, [facility]. Tissue Density: The breasts are heterogeneously dense, which may obscure small masses. Findings: Analyzed By CAD. Asymmetric density central anterior left CC view remain unchanged. There is no suspicious group of microcalcifications or new suspicious mass in either breast. Overall Assessment: Benign, BI-RAD 2 Management: Screening Mammogram of both breasts in 1 year. . Patient should continue monthly self-breast exams. A clinical breast exam by your physician is recommended on an annual basis. This exam should not preclude additional follow-up of suspicious palpable abnormalities. Note on Eboni scores and lifetime risk: 1. A Eboni score greater than 3% is considered moderate risk. If this is the case, consider specialist referral to assess eligibility for a risk reducing agent. 2. If overall lifetime risk for the development of breast cancer is 20% or higher, the patient may qualify for future screening with alternating mammogram and breast MRI. [facility], , 06/20/2024 5:07 PM. Electronically signed and approved by: Cale Gayle M.D. Radiologist
== END | disposition home or self-care (01) ==
LOC: RADMAMWWP 07:38
PROVIDERS: ATTEND Family Medicine
DX: Z12.31 Encounter for screening mammogram for malignant neoplasm of breast
CPT/HCPCS: 71271; 77063; 77067